=== PATIENT | male | born 1955 | race Caucasian/White ===

== ENCOUNTER 2018-08-07 14:30 | Observation (INO) | payer OTHER ==
[2018-08-07] MEDS ORDERED: Sodium Chloride 0.9% 2.5 ML Syringe FLUSH PRN (14:36)
[2018-08-07] MEDS ORDERED: Sodium Chloride 0.9% 10 ML Syringe FLUSH PRN (14:36)
[2018-08-07] MEDS ORDERED: Aspirin 81 MG Tab.Chew PO ONE (14:36)
--- NOTE | 2018-08-07 14:37 | EDM.PDOC ---
ED HPI GENERAL MEDICAL PROBLEM - General Stated Complaint: CHEST PAIN Time Seen by Provider: 08/07/18 14:35 Source of Information: Reports: Patient History Limitations: Reports: No Limitations - History of Present Illness INITIAL COMMENTS - FREE TEXT/NARRATIVE: HISTORY AND PHYSICAL: History of present illness: Patient is a 63-year-old male who presents to the emergency room with complaints of midsternal chest pain. He states this has been going on for approximately 45 minutes prior to arrival. He states it is hard to describe the pain states it's a dull pressure. This pain does not radiate anywhere. He states the pain is there at rest, nothing makes it better or worse. He has had some shortness of breath over the past year which she does not have any reasoning for. He denies any fever, chills, cough, abdominal pain, nausea, vomiting, diarrhea or constipation. He has been eating and drinking appropriately but does admit she is "too much coffee and not enough water". Denies any change in vision, diaphoresis, headache, near-syncope or syncope. He has no previous history of heart disease. He does state he saw his primary care doctor in [place] 3 weeks ago for routine lab work. He states everything was reported as normal but was told he has elevated cholesterol and "something with my lung". He was not placed on any new medications or requested to come back in. He does state he does have some increased anxiety related to work and home life. Does not have any history of ascites or depression. Review of systems: As per history of present illness and below otherwise all systems reviewed and negative. Past medical history: As per history of present illness and as reviewed below otherwise noncontributory. Surgical history: As per history of present illness and as reviewed below otherwise noncontributory. Social history: No reported history of drug or alcohol abuse. Family history: As per history of present illness and as reviewed below otherwise noncontributory. Physical exam: General: Well-developed and well-nourished 63-year-old male. Alert and oriented. Nontoxic appearing and in no acute distress. HEENT: Atraumatic, normocephalic, pupils equal and reactive bilaterally, negative for conjunctival pallor or scleral icterus, mucous membranes moist, throat clear, neck supple, nontender, trachea midline. No drooling or trismus noted. No meningeal signs Lungs: Clear to auscultation, breath sounds equal bilaterally, chest nontender. Heart: S1S2, regular rate and rhythm without overt murmur Abdomen: Soft, nondistended, nontender. Negative for masses or hepatosplenomegaly. Negative for costovertebral tenderness. Pelvis: Stable nontender. Genitourinary: Deferred. Rectal: Deferred. Skin: Intact, warm, dry. No lesions or rashes noted. Extremities: Atraumatic, negative for cords or calf pain. Neurovascular unremarkable. Neuro: Awake, alert, oriented. Cranial nerves II through XII unremarkable. Cerebellum unremarkable. Motor and sensory unremarkable throughout. Exam nonfocal. Notes: EKG shows normal sinus rhythm with rate of 69, VSS. Patient reports that he did have a similar episode of this months ago but had resolved on its own. He did not seek medical attention for this. He did see his primary care provider 3 weeks ago and have routine lab work done at that time. He states this was done as "he kept hounding me over and over to come in". This was a part of a yearly examination. He states he has not had any formal cardiac workup or EKG done in "I dont know how long". Lab work is unremarkable. Chest x-ray shows no evidence of infiltrate or pneumonia. Patient states that the chest pain he had previously is gone but just has a strange dull pressure when he pushes on his anterior chest. Lab work is within normal limits. I did offer admission which he accepts. The hospitalist was paged at this time. [id number]: Dr Ureña was consulted on this case. He is agreeable to admitting this patient for observation. Patient will be placed on telemetry. Diagnostics: CBC, CMP, troponin, EKG, one view chest Therapeutics: Aspirin, nitroglycerin, Toradol Impression: Chest pain r/o WI Plan: Observation admission with telemetry to Med/Surg Definitive disposition and diagnosis as appropriate pending reevaluation and review of above. Onset: Today Duration: Minutes: Location: Reports: Chest Severity: Moderate (5/10) Improves with: Reports: None Worsens with: Reports: None Associated Symptoms: Reports: Chest Pain, Shortness of Breath (Intermittent and ongoing for "about a year"). Denies: Confusion, Cough, cough w sputum, Diaphoresis, Headaches, Loss of Appetite, Malaise, Nausea/Vomiting, Rash, Seizure, Syncope Treatments EQUIPMENT CLEANER: Reports: Aspirin (81mg once daily every morning) Middle Chest Pain Score (Numeric/FACES): 5 - Related Data Allergies Allergy/AdvReac Type Severity Reaction Status Date / Time hydrocodone [From Lortab] Allergy Dizziness Verified 08/07/18 14:47 Home Meds: Home Meds Aspirin [[place] Aspirin EC] 08/07/18 [History] Fish Oil/[place]-3 Fatty Acids [Fish Oil 1,000 MG] 08/07/18 [History] Pantoprazole Sodium [Protonix] 08/07/18 [History] Vit B12/Intrins Fact/Fa Cmb #2 [Intrinsi [id number]] 08/07/18 [History] Vit D3/Folic Acid/B2/B6/B12 [Folgard Tablet] 08/07/18 [History] ED ROS GENERAL - Review of Systems Review Of Systems: ROS reveals no pertinent complaints other than HPI. ED EXAM, GENERAL - Physical Exam Exam: See Below (See dictation) Course - Vital Signs Last Recorded V/S: Last Vital Signs Temp 97.6 F 08/07/18 20:00 Pulse 64 08/07/18 20:00 Resp 15 08/07/18 20:00 BP 136/72 08/07/18 20:00 Pulse Ox 94 L 08/07/18 20:00 - Orders/Labs/Meds Orders: Active Orders 24 hr Category Date Time Status Sodium Chloride 0.9% [Saline Flush] Med 08/07/18 14:36 Active 10 ml FLUSH ASDIRECTED PRN Sodium Chloride 0.9% [Saline Flush] Med 08/07/18 14:36 Active 2.5 ml FLUSH ASDIRECTED PRN Saline Lock Insert [OM.PC] Stat Oth 08/07/18 14:36 Ordered Medication Orders Aspirin (Aspirin) 81 mg PO DAILY HEIDI Bisacodyl (Dulcolax) 5 mg PO DAILY PRN PRN Reason: Constipation Nitroglycerin (Nitro-Bid 2%) 1 gm TOP Q6H HEIDI Last Admin: 08/07/18 18:42 Dose: 1 gm Pantoprazole Sodium (Protonix) 40 mg PO BIDAC HEIDI Last Admin: 08/07/18 18:27 Dose: 40 mg Sodium Chloride (Saline Flush) 10 ml FLUSH ASDIRECTED PRN PRN Reason: Keep Vein Open Sodium Chloride (Saline Flush) 2.5 ml FLUSH ASDIRECTED PRN PRN Reason: Keep Vein Open Sucralfate (Carafate) 1 gm PO ACBED HEIDI Last Admin: 08/07/18 18:27 Dose: 1 gm Temazepam (Restoril) 15 mg PO BEDTIME PRN PRN Reason: Sleep Labs: Laboratory Tests 08/07/18 08/07/18 Range/Units 14:55 14:55 WBC 5.55 (4.0-11.0) K/uL RBC 5.10 (4.50-5.90) M/uL Hgb 14.8 (13.0-17.0) g/dL Hct 43.0 (38.0-50.0) % MCV 84.3 (80.0-98.0) fL MCH 29.0 (27.0-32.0) pg MCHC 34.4 (31.0-37.0) g/dL RDW Std Deviation 38.5 (28.0-62.0) fl RDW Coeff of [place] 13 (11.0-15.0) % Plt Count 162 (150-400) K/uL MPV 10.00 (7.40-12.00) fL Neut % (Auto) 55.4 (48.0-80.0) % Lymph % (Auto) 31.4 (16.0-40.0) % [place] % (Auto) 8.5 (0.0-15.0) % Eos % (Auto) 3.6 (0.0-7.0) % Baso % (Auto) 1.1 (0.0-1.5) % Neut # (Auto) 3.1 (1.4-5.7) K/uL Lymph # (Auto) 1.7 (0.6-2.4) K/uL [place] # (Auto) 0.5 (0.0-0.8) K/uL Eos # (Auto) 0.2 (0.0-0.7) K/uL Baso # (Auto) 0.1 (0.0-0.1) K/uL Nucleated RBC % 0.0 /100WBC Nucleated RBCs # 0 K/uL Sodium 137 (136-148) mmol/L Potassium 3.9 (3.5-5.1) mmol/L Chloride 104 (98-107) mmol/L Carbon Dioxide 24.1 (21.0-32.0) mmol/L BUN 12 (7.0-18.0) mg/dL Creatinine 0.9 (0.8-1.3) mg/dL Est Cr Clr Drug Dosing TNP Estimated GFR (MDRD) > 60.0 ml/min Glucose 115 H (74-106) mg/dL Calcium 8.9 (8.5-10.1) mg/dL Total Bilirubin 0.9 (0.2-1.0) mg/dL AST 12 L (15-37) IU/L ALT 21 (14-63) IU/L Alkaline Phosphatase 51 (46-116) U/L Troponin I < 0.050 (0.000-0.056) ng/mL Total Protein 7.2 (6.4-8.2) g/dL Albumin 4.0 (3.4-5.0) g/dL Globulin 3.2 (2.0-3.5) g/dL Albumin/Globulin Ratio 1.3 (1.3-2.8) Meds: Medications Generic Name Dose Route Start Last Admin Trade Name Freq PRN Reason Stop Dose Admin Aspirin 81 mg 08/08/18 09:00 Aspirin PO DAILY HEIDI Bisacodyl 5 mg 08/07/18 16:30 Dulcolax PO DAILY PRN Constipation Nitroglycerin 1 gm 08/07/18 16:30 08/07/18 18:42 Nitro-Bid 2% TOP 1 gm Q6H HEIDI Administration Pantoprazole Sodium 40 mg 08/07/18 18:00 08/07/18 18:27 Protonix PO 40 mg BIDAC HEIDI Administration Sodium Chloride 10 ml 08/07/18 14:36 Saline Flush FLUSH ASDIRECTED PRN Keep Vein Open Sodium Chloride 2.5 ml 08/07/18 14:36 Saline Flush FLUSH ASDIRECTED PRN Keep Vein Open Sucralfate 1 gm 08/07/18 17:30 08/07/18 18:27 Carafate PO 1 gm ACBED HEIDI Administration Temazepam 15 mg 08/07/18 16:30 Restoril PO BEDTIME PRN Sleep Discontinued Medications Generic Name Dose Route Start Last Admin Trade Name Freq PRN Reason Stop Dose Admin Aspirin 324 mg 08/07/18 14:36 08/07/18 14:58 Aspirin PO 08/07/18 14:37 324 mg ONETIME ONE Administration Ketorolac Tromethamine 30 mg 08/07/18 16:13 08/07/18 18:25 Toradol IVPUSH 08/07/18 16:14 30 mg ONETIME ONE Administration Nitroglycerin 0.4 mg 08/07/18 14:37 08/07/18 15:09 Nitrostat SL 0.4 mg Q5M PRN Administration Chest Pain Departure - Departure Time of Disposition: 16:19 Disposition: Refer to Observation Clinical Impression: Chest pain, rule out acute myocardial infarction - My Orders Last 24 Hours: My Active Orders 08/07/18 14:36 Sodium Chloride 0.9% [Saline Flush] 10 ml FLUSH ASDIRECTED PRN Sodium Chloride 0.9% [Saline Flush] 2.5 ml FLUSH ASDIRECTED PRN Saline Lock Insert [OM.PC] Stat - Assessment/Plan Last 24 Hours: My Active Orders 08/07/18 14:36 Sodium Chloride 0.9% [Saline Flush] 10 ml FLUSH ASDIRECTED PRN Sodium Chloride 0.9% [Saline Flush] 2.5 ml FLUSH ASDIRECTED PRN Saline Lock Insert [OM.PC] Stat
[2018-08-07] MEDS: Nitroglycerin 0.4 MG Tab.SL SL PRN ×3 (14:58→15:09)
--- NOTE | 2018-08-07 15:22 | CR ---
EXAMINATION: Portable chest radiograph. HISTORY: Chest pain. FINDINGS: The trachea is midline. The cardiomediastinal silhouette is within normal limits. No pulmonary infilt rates, effusions or pneumothorax. Hyperinflation and interstitial prominence likely representing emph ysema. Osseous structures appear unremarkable. IMPRESSION: No acute cardiopulmonary process.
[2018-08-07 15:25] LABS: CHLORIDE,CL 104 mmol/L (98-107); SODIUM,NA 137 mmol/L (136-148)
[2018-08-07] MEDS ORDERED: Ketorolac 30 MG/ML SDV IVPUSH ONE (16:13)
[2018-08-07] MEDS ORDERED: Bisacodyl 5 MG Tab PO PRN (16:30)
[2018-08-07] MEDS ORDERED: Temazepam 15 MG Cap PO PRN (16:30)
--- NOTE | 2018-08-07 17:26 | PCM.HP ---
H&P History of Present Illness - General Date of Service: 08/07/18 Admit Problem/Dx: Admission Diagnosis/Problem Admission Diagnosis/Problem Chest pain, rule out acute myocardial infarction Source of Information: Patient - History of Present Illness Initial Comments - Free Text/Narative: He notes that he has been under some stress. He notes that sometimes it is hard to get a deep breath. He was seen in the ED today and noted pain improvement with sublingual nitroglycerin. Now he has a vague soreness in his mid chest. Middle Chest Pain Score (Numeric/FACES): 5 - Related Data Allergies/Adverse Reactions: Allergies Allergy/AdvReac Type Severity Reaction Status Date / Time acetaminophen [From Lortab] Allergy Dizziness Verified 08/07/18 14:47 hydrocodone [From Lortab] Allergy Dizziness Verified 08/07/18 14:47 Home Medications: Home Meds Aspirin [[place] Aspirin EC] 08/07/18 [History] Fish Oil/[place]-3 Fatty Acids [Fish Oil 1,000 MG] 08/07/18 [History] Pantoprazole Sodium [Protonix] 08/07/18 [History] Vit B12/Intrins Fact/Fa Cmb #2 [Intrinsi [id number]] 08/07/18 [History] Vit D3/Folic Acid/B2/B6/B12 [Folgard Tablet] 08/07/18 [History] Past Medical History - Past Health History Medical/Surgical History: Denies Medical/Surgical History Cardiovascular History: Denies: CAD, Heart Failure Respiratory History: Reports: Other (See Below) (He was recently told that he might have copd) Gastrointestinal History: Reports: GERD. Denies: Cirrhosis Genitourinary History: Denies: Chronic Renal Insuffiency Neurological History: Denies: Alzheimers Disease, CVA Endocrine/Metabolic History: Denies: Diabetes, Type I, Diabetes, Type II - Infectious Disease History Infectious Disease History: Reports: None - Past Surgical History HEENT Surgical History: Reports: Other (See Below) Other HEENT Surgeries/Procedures: esophageal surgery Musculoskeletal Surgical History: Reports: Other (See Below) Other Musculoskeletal Surgeries/Procedures:: repair ruptured disc low back Social & Family History - Family History Family Medical History: Noncontributory - Tobacco Use Smoking Status *Q: Never Smoker Second Hand Smoke Exposure: No - Caffeine Use Caffeine Use: Reports: Coffee - Alcohol Use Alcohol Use Comment: he rarely drinks any alcohol - Recreational Drug Use Recreational Drug Use: No H&P Review of Systems - Review of Systems: Review Of Systems: See Below General: Denies: Fever Pulmonary: Reports: Shortness of Breath (some intermittent shortness of breath) Cardiovascular: Reports: Chest Pain (as per hpi) Gastrointestinal: Denies: Abdominal Pain, Hematemesis, Hematochezia, Melena, Vomiting Genitourinary: Denies: Dysuria, Frequency, Hematuria Psychiatric: Denies: Confusion Exam - Exam Exam: See Below - Vital Signs Vital Signs: Last Vital Signs Temp 97.5 F 08/07/18 14:35 Pulse 75 08/07/18 14:35 Resp 18 08/07/18 14:35 BP 121/71 08/07/18 15:09 Pulse Ox 96 08/07/18 14:35 Weight: 81.647 kg - Exam General: Alert, Oriented HEENT: EOMI Neck: Supple, Trachea Midline Lungs: Clear to Auscultation, Normal Respiratory Effort Cardiovascular: Regular Rate, Regular Rhythm GI/Abdominal Exam: Soft, Non-Tender (Male) Exam: Deferred Rectal (Males) Exam: Deferred Extremities: No Pedal Edema Skin: Warm, Dry Neurological: Cranial Nerves Intact, Normal Speech Psychiatric: Alert. No: Agitated (EKG: NSR) Physical Exam Comments:: anterior chest wall tenderness - mild - Patient Data Lab Results Last 24 hrs: Laboratory Results - last 24 hr 08/07/18 08/07/18 Range/Units 14:55 14:55 WBC 5.55 (4.0-11.0) K/uL RBC 5.10 (4.50-5.90) M/uL Hgb 14.8 (13.0-17.0) g/dL Hct 43.0 (38.0-50.0) % MCV 84.3 (80.0-98.0) fL MCH 29.0 (27.0-32.0) pg MCHC 34.4 (31.0-37.0) g/dL RDW Std Deviation 38.5 (28.0-62.0) fl RDW Coeff of [place] 13 (11.0-15.0) % Plt Count 162 (150-400) K/uL MPV 10.00 (7.40-12.00) fL Neut % (Auto) 55.4 (48.0-80.0) % Lymph % (Auto) 31.4 (16.0-40.0) % [place] % (Auto) 8.5 (0.0-15.0) % Eos % (Auto) 3.6 (0.0-7.0) % Baso % (Auto) 1.1 (0.0-1.5) % Neut # (Auto) 3.1 (1.4-5.7) K/uL Lymph # (Auto) 1.7 (0.6-2.4) K/uL [place] # (Auto) 0.5 (0.0-0.8) K/uL Eos # (Auto) 0.2 (0.0-0.7) K/uL Baso # (Auto) 0.1 (0.0-0.1) K/uL Nucleated RBC % 0.0 /100WBC Nucleated RBCs # 0 K/uL Sodium 137 (136-148) mmol/L Potassium 3.9 (3.5-5.1) mmol/L Chloride 104 (98-107) mmol/L Carbon Dioxide 24.1 (21.0-32.0) mmol/L BUN 12 (7.0-18.0) mg/dL Creatinine 0.9 (0.8-1.3) mg/dL Est Cr Clr Drug Dosing TNP Estimated GFR (MDRD) > 60.0 ml/min Glucose 115 H (74-106) mg/dL Calcium 8.9 (8.5-10.1) mg/dL Total Bilirubin 0.9 (0.2-1.0) mg/dL AST 12 L (15-37) IU/L ALT 21 (14-63) IU/L Alkaline Phosphatase 51 (46-116) U/L Troponin I < 0.050 (0.000-0.056) ng/mL Total Protein 7.2 (6.4-8.2) g/dL Albumin 4.0 (3.4-5.0) g/dL Globulin 3.2 (2.0-3.5) g/dL Albumin/Globulin Ratio 1.3 (1.3-2.8) Result Diagrams: 08/07/18 14:55 08/07/18 14:55 - Problem List (1) Chest pain SNOMED Code(s): 82807856 ICD Code: R07.9 - CHEST PAIN, UNSPECIFIED Status: Acute Current Visit: Yes Problem List Initiated/Reviewed/Updated: Yes Orders Last 24hrs: Active Orders 24 hr Category Date Time Status Admission Status [Patient Status] [ADT] Stat ADT 08/07/18 16:20 Active EKG Documentation Completion [RC] STAT Care 08/07/18 14:36 Active Oxygen Therapy [RC] PRN Care 08/07/18 16:30 Active VTE/DVT Education [RC] PER UNIT ROUTINE Care 08/07/18 16:30 Active Vital Signs [RC] Q4H Care 08/07/18 16:30 Active Regular Diet [DIET] Diet 08/07/18 Breakfast Active TROPONIN I [CHEM] Q6H Lab 08/07/18 22:00 Ordered TROPONIN I [CHEM] Q6H Lab 08/08/18 04:00 Ordered Aspirin Med 08/08/18 09:00 Active 81 mg PO DAILY Bisacodyl [Dulcolax] Med 08/07/18 16:30 Active 5 mg PO DAILY PRN Nitroglycerin [Nitro-Bid 2%] Med 08/07/18 16:30 Active 1 gm TOP Q6H Sodium Chloride 0.9% [Saline Flush] Med 08/07/18 14:36 Active 10 ml FLUSH ASDIRECTED PRN Sodium Chloride 0.9% [Saline Flush] Med 08/07/18 14:36 Active 2.5 ml FLUSH ASDIRECTED PRN Temazepam [Restoril] Med 08/07/18 16:30 Active 15 mg PO BEDTIME PRN Saline Lock Insert [OM.PC] Stat Oth 08/07/18 14:36 Ordered Resuscitation Status Routine Resus Stat 08/07/18 16:30 Ordered Medication Orders Aspirin (Aspirin) 81 mg PO DAILY HEIDI Bisacodyl (Dulcolax) 5 mg PO DAILY PRN PRN Reason: Constipation Nitroglycerin (Nitro-Bid 2%) 1 gm TOP Q6H HEIDI Sodium Chloride (Saline Flush) 10 ml FLUSH ASDIRECTED PRN PRN Reason: Keep Vein Open Sodium Chloride (Saline Flush) 2.5 ml FLUSH ASDIRECTED PRN PRN Reason: Keep Vein Open Temazepam (Restoril) 15 mg PO BEDTIME PRN PRN Reason: Sleep Assessment/Plan Comment:: 08/07/2018 observation on telemetry I suspect that this may be GI in origin serial troponins see orders
[2018-08-07] MEDS: Sucralfate Suspension 1 GM/10 ML Cup PO SCH ×2 (18:27→22:06)
[2018-08-07] MEDS: Pantoprazole 40 MG Tab.CR PO SCH (18:27)
[2018-08-07] MEDS: Nitroglycerin 2% Oint 1 GM UD Packet TOP SCH ×2 (18:42→22:07)
[2018-08-08] MEDS: Nitroglycerin 2% Oint 1 GM UD Packet TOP SCH ×2 (05:41→09:30)
[2018-08-08] MEDS: Pantoprazole 40 MG Tab.CR PO SCH (06:55)
[2018-08-08] MEDS: Sucralfate Suspension 1 GM/10 ML Cup PO SCH (06:55)
--- NOTE | 2018-08-08 07:28 | PCM.DCSUM1 ---
Discharge Summary - Hospital Course Diagnosis: Stroke: No Modified [place] Scale: No Symptoms at All Modified [place] Scale Score: 0 - Discharge Data Discharge Date: 08/08/18 Discharge Disposition: Home, Self-Care 01 Condition: Good - Patient Summary/Data Hospital Course: The patient is a 63-year-old gentleman who was admitted yesterday evening secondary to atypical chest pain. Patient says that he had been out working working and he developed midsternal chest pain which did not radiate. The patient came to the emergency department and had some relief with nitroglycerin. The patient was admitted for serial troponins and repeat EKG. The patient had troponins which were all essentially undetectable 3 and a static normal EKG. The patient had remained pain free. It should also be noted that the patient had a number of risk factors include age, sex, aspirin use and recommended to have a EKG stress test upon return home to [place]. The patient does not have a primary care physician here and he has been recommended to return to [place] for his PCP evaluation within 1 week. The patient had remained hemodynamically stable throughout the short course of hospitalization and overnight he did not require any intervention. The patient has been recommended to continue with his diabetes tolerated. He is to have activity as tolerated. The patient's other laboratory studies have also been normal. Patient has been discharged from observation hospitalization with the recommendations listed above. - Patient Instructions Diet: Heart Healthy Diet Activity: As Tolerated Driving: May Drive Today - Discharge Plan *PRESCRIPTION DRUG MONITORING PROGRAM REVIEWED*: Yes *COPY OF PRESCRIPTION DRUG MONITORING REPORT IN PATIENT [place]: Yes Home Medications: Home Meds Aspirin [[place] Aspirin EC] 08/07/18 [History] Fish Oil/[place]-3 Fatty Acids [Fish Oil 1,000 MG] 08/07/18 [History] Pantoprazole Sodium [Protonix] 08/07/18 [History] Vit B12/Intrins Fact/Fa Cmb #2 [Intrinsi [id number]] 08/07/18 [History] Vit D3/Folic Acid/B2/B6/B12 [Folgard Tablet] 08/07/18 [History] Patient Handouts: Exercise Stress Test, [id number], Nonspecific Chest Pain, [id number] - Discharge Summary/Plan Comment DC Time >30 min.: Yes - General Info Admission Dx/Problem (Free Text: Admission Diagnosis/Problem Admission Diagnosis/Problem Chest pain, rule out acute myocardial infarction Functional Status: Reports: Pain Controlled - Review of Systems General: Reports: No Symptoms HEENT: Reports: No Symptoms Pulmonary: Reports: No Symptoms Cardiovascular: Reports: No Symptoms Gastrointestinal: Reports: No Symptoms Genitourinary: Reports: No Symptoms Musculoskeletal: Reports: No Symptoms Skin: Reports: No Symptoms Neurological: Reports: No Symptoms Psychiatric: Reports: No Symptoms - Patient Data Vitals - Most Recent: Last Vital Signs Temp 36.6 C 08/08/18 04:00 Pulse 56 L 08/08/18 04:00 Resp 16 08/08/18 04:00 BP 105/66 08/08/18 04:00 Pulse Ox 95 08/08/18 04:00 Weight - Most Recent: 82.809 kg I&O - Last 24 hours: Intake & Output 08/07/18 08/08/18 08/08/18 22:59 06:59 14:59 Intake Total 240 Output Total 200 Balance 40 Lab Results - Last 24 hrs: Laboratory Results - last 24 hr 08/07/18 08/07/18 08/07/18 Range/Units 14:55 14:55 22:03 WBC 5.55 (4.0-11.0) K/uL RBC 5.10 (4.50-5.90) M/uL Hgb 14.8 (13.0-17.0) g/dL Hct 43.0 (38.0-50.0) % MCV 84.3 (80.0-98.0) fL MCH 29.0 (27.0-32.0) pg MCHC 34.4 (31.0-37.0) g/dL RDW Std Deviation 38.5 (28.0-62.0) fl RDW Coeff of [place] 13 (11.0-15.0) % Plt Count 162 (150-400) K/uL MPV 10.00 (7.40-12.00) fL Neut % (Auto) 55.4 (48.0-80.0) % Lymph % (Auto) 31.4 (16.0-40.0) % [place] % (Auto) 8.5 (0.0-15.0) % Eos % (Auto) 3.6 (0.0-7.0) % Baso % (Auto) 1.1 (0.0-1.5) % Neut # (Auto) 3.1 (1.4-5.7) K/uL Lymph # (Auto) 1.7 (0.6-2.4) K/uL [place] # (Auto) 0.5 (0.0-0.8) K/uL Eos # (Auto) 0.2 (0.0-0.7) K/uL Baso # (Auto) 0.1 (0.0-0.1) K/uL Nucleated RBC % 0.0 /100WBC Nucleated RBCs # 0 K/uL Sodium 137 (136-148) mmol/L Potassium 3.9 (3.5-5.1) mmol/L Chloride 104 (98-107) mmol/L Carbon Dioxide 24.1 (21.0-32.0) mmol/L BUN 12 (7.0-18.0) mg/dL Creatinine 0.9 (0.8-1.3) mg/dL Est Cr Clr Drug Dosing TNP Estimated GFR (MDRD) > 60.0 ml/min Glucose 115 H (74-106) mg/dL Calcium 8.9 (8.5-10.1) mg/dL Total Bilirubin 0.9 (0.2-1.0) mg/dL AST 12 L (15-37) IU/L ALT 21 (14-63) IU/L Alkaline Phosphatase 51 (46-116) U/L Troponin I < 0.050 < 0.050 (0.000-0.056) ng/mL Total Protein 7.2 (6.4-8.2) g/dL Albumin 4.0 (3.4-5.0) g/dL Globulin 3.2 (2.0-3.5) g/dL Albumin/Globulin Ratio 1.3 (1.3-2.8) 08/08/18 Range/Units 04:11 WBC (4.0-11.0) K/uL RBC (4.50-5.90) M/uL Hgb (13.0-17.0) g/dL Hct (38.0-50.0) % MCV (80.0-98.0) fL MCH (27.0-32.0) pg MCHC (31.0-37.0) g/dL RDW Std Deviation (28.0-62.0) fl RDW Coeff of [place] (11.0-15.0) % Plt Count (150-400) K/uL MPV (7.40-12.00) fL Neut % (Auto) (48.0-80.0) % Lymph % (Auto) (16.0-40.0) % [place] % (Auto) (0.0-15.0) % Eos % (Auto) (0.0-7.0) % Baso % (Auto) (0.0-1.5) % Neut # (Auto) (1.4-5.7) K/uL Lymph # (Auto) (0.6-2.4) K/uL [place] # (Auto) (0.0-0.8) K/uL Eos # (Auto) (0.0-0.7) K/uL Baso # (Auto) (0.0-0.1) K/uL Nucleated RBC % /100WBC Nucleated RBCs # K/uL Sodium (136-148) mmol/L Potassium (3.5-5.1) mmol/L Chloride (98-107) mmol/L Carbon Dioxide (21.0-32.0) mmol/L BUN (7.0-18.0) mg/dL Creatinine (0.8-1.3) mg/dL Est Cr Clr Drug Dosing Estimated GFR (MDRD) ml/min Glucose (74-106) mg/dL Calcium (8.5-10.1) mg/dL Total Bilirubin (0.2-1.0) mg/dL AST (15-37) IU/L ALT (14-63) IU/L Alkaline Phosphatase (46-116) U/L Troponin I < 0.050 (0.000-0.056) ng/mL Total Protein (6.4-8.2) g/dL Albumin (3.4-5.0) g/dL Globulin (2.0-3.5) g/dL Albumin/Globulin Ratio (1.3-2.8) Med Orders - Current: Current Medications Aspirin (Aspirin) 81 mg PO DAILY [facility] Bisacodyl (Dulcolax) 5 mg PO DAILY PRN PRN Reason: Constipation Nitroglycerin (Nitro-Bid 2%) 1 gm TOP Q6H [facility] Last Admin: 08/08/18 05:41 Dose: Not Given Pantoprazole Sodium (Protonix) 40 mg PO BIDAC [facility] Last Admin: 08/08/18 06:55 Dose: 40 mg Sodium Chloride (Saline Flush) 10 ml FLUSH ASDIRECTED PRN PRN Reason: Keep Vein Open Sodium Chloride (Saline Flush) 2.5 ml FLUSH ASDIRECTED PRN PRN Reason: Keep Vein Open Sucralfate (Carafate) 1 gm PO ACBED [facility] Last Admin: 08/08/18 06:55 Dose: 1 gm Temazepam (Restoril) 15 mg PO BEDTIME PRN PRN Reason: Sleep Discontinued Medications Aspirin (Aspirin) 324 mg PO ONETIME ONE Stop: 08/07/18 14:37 Last Admin: 08/07/18 14:58 Dose: 324 mg Ketorolac Tromethamine (Toradol) 30 mg IVPUSH ONETIME ONE Stop: 08/07/18 16:14 Last Admin: 08/07/18 18:25 Dose: 30 mg Nitroglycerin (Nitrostat) 0.4 mg SL Q5M PRN PRN Reason: Chest Pain Last Admin: 08/07/18 15:09 Dose: 0.4 mg - Exam General: Reports: Alert, Oriented, Cooperative, No Acute Distress HEENT: Reports: Pupils Equal, Pupils Reactive, EOMI Neck: Reports: Supple, Trachea Midline, No Thyromegaly. Denies: Lymphadenopathy Lungs: Reports: Clear to Auscultation, Normal Respiratory Effort Cardiovascular: Reports: Regular Rate, Regular Rhythm, No Murmurs GI/Abdominal Exam: Normal Bowel Sounds, Soft, Non-Tender, No Organomegaly, No Distention (Male) Exam: Deferred Rectal (Males) Exam: Deferred Back Exam: Reports: Normal Inspection, Full Range of Motion Extremities: Normal Inspection, Normal Range of Motion, Non-Tender, No Pedal Edema, Normal Capillary Refill Skin: Reports: Warm, Dry, Intact Neurological: Reports: No New Focal Deficit, Normal Gait, Normal Speech, Normal Tone Psy/Mental Status: Reports: Alert, Normal Affect, Normal Mood EKG INTERPRETATION EKG Date: 08/08/18 Time: 08:00 Rhythm: NSR [place]: Normal P-Wave: Present QRS: Normal ST-T: Normal QT: Normal Comparison: No Change
[2018-08-08] MEDS ORDERED: Aspirin 81 MG Tab.Chew PO SCH (09:00)
== END 2018-08-08 10:17 | disposition home or self-care (01) ==
LOC: MW.ED 14:30 → MW.MS 16:20
PROVIDERS: ADMIT Family Medicine; ATTEND Family Medicine
DX: R07.89 Other chest pain (principal); K21.9 Gastro-esophageal reflux disease without esophagitis; Z79.82 Long term (current) use of aspirin; Z79.899 Other long term (current) drug therapy; Z88.5 Allergy status to narcotic agent; Z88.6 Allergy status to analgesic agent
CPT/HCPCS: 36415; 71045; 80053; 84484; 85025; 90686; 93005; 99285; A9270; J1885; 96374; G0378

== ENCOUNTER 2019-05-31 11:18 | Emergency (ER) | payer OTHER ==
[2019-05-31] MEDS ORDERED: Morphine 2 MG/ML Syringe IVPUSH ONE ×2 (11:23→12:35)
--- NOTE | 2019-05-31 11:28 | EDM.PDOC ---
ED HPI GENERAL MEDICAL PROBLEM - General Chief Complaint: Chest Pain Stated Complaint: CHEST PAIN Time Seen by Provider: 05/31/19 11:22 Source of Information: Reports: Patient History Limitations: Reports: No Limitations - History of Present Illness INITIAL COMMENTS - FREE TEXT/NARRATIVE: HISTORY AND PHYSICAL: History of present illness: Patient is a 64-year-old male who presents to the emergency room today with complaints of intermittent midsternal chest pain 2 days. He states yesterday he had intermittent chest pain which was bothersome but not severe enough to cause him to come in for evaluation. Describes the pain as "sharp pressure" - does not radiate anywhere. Today while at work he states "the pain was worse than it has been" rating it a 10/10. When the pain was at its worst he states he felt dizzy, generalized weakness and "like my chest should pop". He informed his employer he was not feeling well. EMS was called to transport patient to the emergency room. Aspirin and nitroglycerin were given prior to arrival. States he did not feel any relief with the nitroglycerin but states the pain which was a 10/10 is now a 3/10 (before the nitro was given). No personal history of heart disease. He states he believes his parents had some history of heart disease, although is unsure. Patient was seen approximately one year ago with similar symptoms, was admitted for chest pain rule out SC. States that "everything checked out" but was diagnosed with some GERD. Does take a PPI routinely. Patient denies any fever, chills, headache, change in vision, syncope or near syncope. Denies any back pain, shortness of breath or cough. Denies any abdominal pain, nausea, vomiting, diarrhea, constipation or dysuria. Patient has been eating and drinking appropriately. Review of systems: As per history of present illness and below otherwise all systems reviewed and negative. Past medical history: As per history of present illness and as reviewed below otherwise noncontributory. Surgical history: As per history of present illness and as reviewed below otherwise noncontributory. Social history: See social history for further information Family history: As per history of present illness and as reviewed below otherwise noncontributory. Physical exam: General: Well-developed and well-nourished 64-year-old male. Alert and oriented. Nontoxic appearing and in no acute distress. HEENT: Atraumatic, normocephalic, pupils equal and reactive bilaterally, negative for conjunctival pallor or scleral icterus, mucous membranes moist, trachea midline. No drooling or trismus noted. No meningeal signs. No hot potato voice noted. Lungs: Clear to auscultation, breath sounds equal bilaterally, chest nontender. Heart: S1S2, regular rate and rhythm without overt murmur Abdomen: Soft, nondistended, nontender. Negative for masses or hepatosplenomegaly. Negative for costovertebral tenderness. Pelvis: Stable nontender. Skin: Intact, warm, dry. No lesions or rashes noted. Extremities: Atraumatic, moves all extremities per self without difficulty or deficits, negative for cords or calf pain. Neurovascular unremarkable. Neuro: Awake, alert, oriented. Cranial nerves II through XII unremarkable. Cerebellum unremarkable. Motor and sensory unremarkable throughout. Exam nonfocal. Notes: EKG shows a sinus rhythm with some flipped T waves noted. Chest x-ray shows no acute findings. Patient does have an elevated troponin of 0.22. Patient was made aware of findings and the need to transfer to a larger facility. Patient will go via fixed wing. I did contact Dr. Tolentino, [facility], he is agreeable to accepting this patient for further evaluation and management. Patient's vital signs remain stable. Rating his chest pain currently at a 2-3/ 10. He reports he did not have any relief with the nitroglycerin or morphine. We 'll continue to monitor. Diagnostics: CBC, CMP, troponin, EKG, one view chest Therapeutics: Morphine, nitroglycerin transdermal, Lovenox Impression: ACS Plan: Transfer to [facility] via fixed wing - Dr Tolentino Definitive disposition and diagnosis as appropriate pending reevaluation and review of above. Chest Pain Score (Numeric/FACES): 3 - Related Data Allergies Allergy/AdvReac Type Severity Reaction Status Date / Time hydrocodone [From Lortab] Allergy Dizziness Verified 08/07/18 14:47 Home Meds: Home Meds Aspirin [Price Aspirin EC] 81 mg PO DAILY 08/07/18 [History] Fish Oil/[place]-3 Fatty Acids [Fish Oil 1,000 MG] 1 gm PO DAILY 08/07/18 [History ] Vit B12/Intrins Fact/Fa Cmb #2 [Intrinsi [id number]] 1 each PO DAILY 08/07/18 [ History] Vit D3/Folic Acid/B2/B6/B12 [Folgard Tablet] 1 each PO DAILY 08/07/18 [History] Past Medical History - Past Health History Medical/Surgical History: Denies Medical/Surgical History Respiratory History: Reports: Other (See Below) Gastrointestinal History: Reports: GERD - Infectious Disease History Infectious Disease History: Reports: Chicken Pox - Past Surgical History HEENT Surgical History: Reports: Other (See Below) Other HEENT Surgeries/Procedures: esophageal surgery Musculoskeletal Surgical History: Reports: Other (See Below) Other Musculoskeletal Surgeries/Procedures:: repair ruptured disc low back Social & Family History - Family History Family Medical History: Noncontributory - Caffeine Use Caffeine Use: Reports: Coffee ED ROS GENERAL - Review of Systems Review Of Systems: ROS reveals no pertinent complaints other than HPI. ED EXAM, GENERAL - Physical Exam Exam: See Below (See dictation) Course - Vital Signs Last Recorded V/S: Last Vital Signs Temp 97.6 F 05/31/19 11:24 Pulse 58 L 05/31/19 11:59 Resp 18 05/31/19 11:59 BP 119/79 05/31/19 11:59 Pulse Ox 95 05/31/19 11:59 - Orders/Labs/Meds Orders: Active Orders 24 hr Category Date Time Status EKG Documentation Completion [RC] STAT Care 05/31/19 11:21 Active Sodium Chloride 0.9% @ 125 MLS/HR (1,000ml) Med 05/31/19 12:45 Ordered Sodium Chloride 0.9% [Normal Saline] 1,000 ml IV ASDIRECTED Medication Orders Sodium Chloride (Normal Saline) 1,000 mls @ 125 mls/hr IV ASDIRECTED HEIDI Labs: Laboratory Tests 05/31/19 05/31/19 Range/Units 11:43 11:43 WBC 6.89 (4.0-11.0) K/uL RBC 5.38 (4.50-5.90) M/uL Hgb 15.5 (13.0-17.0) g/dL Hct 45.5 (38.0-50.0) % MCV 84.6 (80.0-98.0) fL MCH 28.8 (27.0-32.0) pg MCHC 34.1 (31.0-37.0) g/dL RDW Std Deviation 38.4 (28.0-62.0) fl RDW Coeff of [place] 13 (11.0-15.0) % Plt Count 185 (150-400) K/uL MPV 10.30 (7.40-12.00) fL Neut % (Auto) 67.6 (48.0-80.0) % Lymph % (Auto) 24.4 (16.0-40.0) % [place] % (Auto) 6.2 (0.0-15.0) % Eos % (Auto) 1.2 (0.0-7.0) % Baso % (Auto) 0.6 (0.0-1.5) % Neut # (Auto) 4.7 (1.4-5.7) K/uL Lymph # (Auto) 1.7 (0.6-2.4) K/uL [place] # (Auto) 0.4 (0.0-0.8) K/uL Eos # (Auto) 0.1 (0.0-0.7) K/uL Baso # (Auto) 0.0 (0.0-0.1) K/uL Nucleated RBC % 0.0 /100WBC Nucleated RBCs # 0 K/uL Sodium 139 (136-148) mmol/L Potassium 4.1 (3.5-5.1) mmol/L Chloride 106 (98-107) mmol/L Carbon Dioxide 23.1 (21.0-32.0) mmol/L BUN 16 (7.0-18.0) mg/dL Creatinine 1.1 (0.8-1.3) mg/dL Est Cr Clr Drug Dosing 70.05 mL/min Estimated GFR (MDRD) > 60.0 ml/min Glucose 112 H (74-106) mg/dL Calcium 8.9 (8.5-10.1) mg/dL Total Bilirubin 0.9 (0.2-1.0) mg/dL AST 15 (15-37) IU/L ALT 21 (14-63) IU/L Alkaline Phosphatase 49 (46-116) U/L Troponin I 0.222 H* (0.000-0.056) ng/mL Total Protein 7.2 (6.4-8.2) g/dL Albumin 3.9 (3.4-5.0) g/dL Globulin 3.3 (2.6-4.0) g/dL Albumin/Globulin Ratio 1.2 (0.9-1.6) Meds: Medications Generic Name Dose Route Start Last Admin Trade Name Kelley PRN Reason Stop Dose Admin Sodium Chloride 1,000 mls @ 125 mls/hr 05/31/19 12:45 Normal Saline IV ASDIRECTED HEIDI Discontinued Medications Generic Name Dose Route Start Last Admin Trade Name Kelley PRN Reason Stop Dose Admin Enoxaparin Sodium 80 mg 05/31/19 12:35 Lovenox SUBCUT 05/31/19 12:36 ONETIME ONE Morphine Sulfate 2 mg 05/31/19 11:23 05/31/19 11:41 Morphine IVPUSH 05/31/19 11:24 2 mg ONETIME ONE Administration Morphine Sulfate 2 mg 05/31/19 12:35 Morphine IVPUSH 05/31/19 12:36 ONETIME ONE Nitroglycerin 1 gm 05/31/19 12:33 Nitro-Bid 2% TOP 05/31/19 12:34 ONETIME ONE Departure - Departure Time of Disposition: 12:41 Disposition: DC/Tfer to Acute Hospital 02 Reason for Transfer *Q: Primary PCI Indicated Clinical Impression: Acute coronary syndrome Referrals: PCP,None [Primary Care Provider] - Forms: ED Department Discharge - My Orders Last 24 Hours: My Active Orders 05/31/19 11:21 EKG Documentation Completion [RC] STAT 05/31/19 12:45 Sodium Chloride 0.9% @ 125 MLS/HR (1,000ml) Sodium Chloride 0.9% [Normal Saline ] 1,000 ml IV ASDIRECTED - Assessment/Plan Last 24 Hours: My Active Orders 05/31/19 11:21 EKG Documentation Completion [RC] STAT 05/31/19 12:45 Sodium Chloride 0.9% @ 125 MLS/HR (1,000ml) Sodium Chloride 0.9% [Normal Saline ] 1,000 ml IV ASDIRECTED
--- NOTE | 2019-05-31 12:10 | CR ---
EXAMINATION: Portable chest radiograph. HISTORY: Chest pain. Comparison: 08/07/2018. FINDINGS: The trachea is midline. The cardiomediastinal silhouette is within normal limits. No pulmonary infiltrates, effusions or pneumothorax. Mild interstitial prominence and hyperinflation. Nipple shadows noted. Osseous structures appear unremarkable. IMPRESSION: No acute cardiopulmonary process.
[2019-05-31 12:25] LABS: CHLORIDE,CL 106 mmol/L (98-107); SODIUM,NA 139 mmol/L (136-148)
[2019-05-31] MEDS ORDERED: Nitroglycerin 2% Oint 1 GM UD Packet TOP ONE (12:33)
[2019-05-31] MEDS ORDERED: Enoxaparin 100 MG/1 ML Syringe SUBCUT ONE (12:35)
[2019-05-31] MEDS ORDERED: Enoxaparin 100 MG/1 ML Syringe ONE (12:37)
[2019-05-31] MEDS ORDERED: Sodium Chloride 0.9% 1,000 ML IV SCH (12:45)
== END 2019-05-31 13:25 ==
LOC: MW.ED 11:18
DX: I24.9 Acute ischemic heart disease, unspecified (principal); Z88.5 Allergy status to narcotic agent; Z79.82 Long term (current) use of aspirin
CPT/HCPCS: 36415; 71045; 80053; 84484; 85025; 93005; 96361; 96372; 96374; 96376; 99285; A9270; J1650; J2270; J7040; 99284